=== PATIENT | male | born 1955 | race Caucasian/White ===

== ENCOUNTER 2019-05-10 19:09 | Emergency (ER) | payer MEDICAID ==
[~2019-05-10] VITALS: Ht 175.3 cm; Wt 99.8 kg
--- NOTE | 2019-05-10 19:14 | NUR ---
PT [facility]. C/O "FEELING WEAK. DIZZY. ALSO HAVING EPIGASTRIC PAIN" +DIZZY NOTED. VSS AT THIS TIME.
[2019-05-10 20:23] LABS: BASOPHILS # (AUTO) 0.1 /CMM (0.0-0.2); BASOPHILS % (AUTO) 1.2 % (0.0-2.0); HEMATOCRIT 48 % (39-51); HEMOGLOBIN 16.4 g/dL (13.5-17.5); LYMPHOCYTES # (AUTO) 1.8 /CMM (0.8-4.8); LYMPHOCYTES % (AUTO) 15.2 % (20.0-44.0); MEAN CORPUSCULAR HGB CONC 34 g/dl (31.0-36.0); MEAN CORPUSCULAR VOLUME 88 fL (80-96); MONOCYTES # (AUTO) 0.7 /CMM (0.1-1.30); MONOCYTES % (AUTO) 5.6 % (2.0-12.0); NEUTROPHILS # (AUTO) 8.9 /CMM (1.8-8.9); PLATELET COUNT (AUTO) 146 /CMM (150-450); RED BLOOD CELL COUNT(AUTO) 5.49 MIL/uL (4.5-6.0); WHITE BLOOD COUNT (AUTO) 11.7 K/uL (4.3-11.0)
[2019-05-10] MEDS ORDERED: ONDANSETRON 4 MG TAB.RAPDIS ONE (20:23)
[2019-05-10] MEDS ORDERED: MECLIZINE HCL 25 MG TABLET ONE (20:23)
[2019-05-10] MEDS ORDERED: IV NS 0.9% 1,000 ML BAG IV ONE (20:30)
[2019-05-10] MEDS ORDERED: ONDANSETRON 4 MG TAB.RAPDIS PO ONE (20:30)
[2019-05-10] MEDS ORDERED: MECLIZINE HCL 12.5 MG TABLET PO ONE (20:30)
[2019-05-10 20:34] LABS: CALCIUM, SERUM 9.2 mg/dL (8.5-10.1); CARBON DIOXIDE 20 mmol/L (21-32); CHLORIDE 106 mmol/L (98-107); CREATININE 1.7 mg/dL (0.6-1.3); GLUCOSE 155 mg/dL (74-106); POTASSIUM 3.8 mmol/L (3.5-5.1); SODIUM SERUM 138 mmol/L (136-145); UREA NITROGEN, BLOOD 26 mg/dL (7-18)
[2019-05-10 22:38] VITALS: BP 147/67
== END 2019-05-10 22:39 | disposition home or self-care (01) ==
LOC: ER 19:11
DX: R42 Dizziness and giddiness (principal); I10 Essential (primary) hypertension; F17.200 Nicotine dependence, unspecified, uncomplicated; Z90.5 Acquired absence of kidney
CPT/HCPCS: 36415; 70450; 71045; 76770; 80048; 84484; 85025; 96360; 99284; J7030; J8597; Q0162